=== PATIENT | female | born 1990 | race Two or more races ===

== ENCOUNTER → 2022-06-11 | Emergency (ER) | payer OTHER ==
[~2022-06-11] VITALS: Ht 160 cm; Wt 59.0 kg
== END | disposition home or self-care (01) ==
LOC: ER 20:25
DX: Z53.21 Procedure and treatment not carried out due to patient leaving prior to being seen by health care provider (principal); R53.83 Other fatigue; R42 Dizziness and giddiness; R20.8 Other disturbances of skin sensation